=== PATIENT | male | born 1975 | race African-American/Black ===

== ENCOUNTER 2017-05-29 09:27 | Emergency (ER) | payer MEDICAID ==
[~2017-05-29] VITALS: Ht 200.7 cm; Wt 102.3 kg
[~2017-05-29 09:27] MED LIST: AMOXICILLIN 50500 MG PO; BACTRIM DS 8001 TAB PO; CEPHALEXIN250 M1 PO; LORTAB 5/500 501 TAB PO; NORCO 325 MG-51 TAB PO; NORCO 325 MG-7.1 TAB PO; PEN-VEE K500 MG PO; PERCOCET 325 MG1 TA2 PO; PRIMATENE0.22 MG/AC IH; PROAIR HFA0.09 MG/AC IH
[2017-05-29 09:58] VITALS: BP 143/76
[2017-05-29] MEDS ORDERED: PREDNISONE10 MG PO (10:04)
[2017-05-29] MEDS ORDERED: PROAIR HFA0.09 MG/AC IH (10:56)
[2017-05-29] MEDS ORDERED: PREDNISONE20 MG PO (10:56)
[2017-05-29 11:15] VITALS: PULSE 68
== END 2017-05-29 11:17 | disposition home or self-care (01) ==
LOC: COL.ER 09:27
DX: J45.901 Unspecified asthma with (acute) exacerbation (principal)
CPT/HCPCS: J7512

== ENCOUNTER → 2018-08-08 | Outpatient (CLI) | payer OTHER ==
[~2018-08-08] MED LIST changes: +PREDNISONE10 MG PO; +PREDNISONE20 MG PO
== END ==
LOC: COL.PUL 11:15
DX: Z02.71 Encounter for disability determination (principal)

== ENCOUNTER 2019-10-02 12:02 | Emergency (ER) | payer MEDICAID ==
[~2019-10-02] VITALS: Ht 200.7 cm; Wt 84.7 kg
[2019-10-02 12:15] VITALS: TEMP 98.5
[2019-10-02 13:05] LABS: BASO # 0.1 (0.0-0.2); EOS # 0.4 (0.0-0.7); GRAN # 1.8 (1.4-6.5); GRAN % 36.7 % (42.2-75.2); HEMATOCRIT 44.6 % (42.0-52.0); HEMOGLOBIN 14.8 g/dl (13.5-18.0); LYMPH # 2.2 (1.2-3.4); LYMPH % 45.3 % (20.0-51.0); MEAN CELL VOLUME 94 fl (80.0-100.0); MEAN CORPUSCULAR HEMOGLOBIN 31 pg (27.0-31.0); MEAN CORPUSCULAR HGB CONC 33 g/dl (33.0-37.0); MEAN PLATELET VOLUME 8.7 fl (7.4-10.4); MONO # 0.4 (0.1-0.6); MONO % 7.4 % (1.7-9.3); PLATELET COUNT 251 K/mm3 (130-400); RED BLOOD COUNT 4.77 M/mm3 (4.20-5.60); REDCELL DISTRIBUTION WIDTH-CV 12.9 % (11.5-14.5)
[2019-10-02 13:17] LABS: ALANINE AMINOTRANSFERASE 16 U/L (21-72); ALBUMIN 4.4 gm/dL (3.5-5.0); ALKALINE PHOSPHATASE 61 U/L (50-136); ANION GAP 7 mmol/L (7-16); AST,SGOT 23 U/L (15-37); BILIRUBIN,TOTAL 0.7 mg/dL (0.0-1.0); BLOOD UREA NITROGEN 10 mg/dL (9-20); CALCIUM 9.5 mg/dL (8.4-10.2); CARBON DIOXIDE 26 mmol/L (22-30); CHLORIDE 108 mmol/L (98-107); GLUCOSE 91 mg/dL (74-106); POTASSIUM 3.9 mmol/L (3.4-5.0); SODIUM 141 mmol/L (137-145); TOTAL PROTEIN 7.4 gm/dL (6.4-8.2)
[2019-10-02 13:28] LABS: TROPONIN-I < 0.012 ng/mL (0.000-0.035)
[2019-10-02] MEDS ORDERED: ANTIVERT 25MG25 MG PO (14:12)
[2019-10-02] MEDS ORDERED: ZOFRAN 4MG T4 MG/TAB PO (15:25)
[2019-10-02 15:34] VITALS: BP 130/60; PULSE 62
== END 2019-10-02 15:37 | disposition home or self-care (01) ==
LOC: COL.ER 12:02
PROVIDERS: Emergency Medicine
DX: R42 Dizziness and giddiness (principal); J45.909 Unspecified asthma, uncomplicated
CPT/HCPCS: J1200; J2250; J2405; J2550; J7030

== ENCOUNTER 2020-04-01 12:53 | Emergency (ER) | payer SELFPAY ==
[~2020-04-01] VITALS: Ht 200.7 cm; Wt 88.6 kg
[~2020-04-01 12:53] MED LIST changes: +ANTIVERT 25MG25 MG PO; +ZOFRAN 4MG T4 MG/TAB PO
[2020-04-01 14:25] LABS: STREP SCREEN NEGATIVE
[2020-04-01] MEDS ORDERED: AMOXICILLIN 8751 TAB PO (14:38)
[2020-04-01 15:10] VITALS: BP 140/82; PULSE 71; TEMP 98.2
== END 2020-04-01 15:10 | disposition home or self-care (01) ==
LOC: COL.ER 12:53
PROVIDERS: Emergency Medicine
DX: J02.9 Acute pharyngitis, unspecified (principal); F17.200 Nicotine dependence, unspecified, uncomplicated; J45.909 Unspecified asthma, uncomplicated; Z20.828 Contact with and (suspected) exposure to other viral communicable diseases
CPT/HCPCS: J8540